=== PATIENT | female | born 2000 ===

== ENCOUNTER 2024-10-03 17:04 | Outpatient (REF) | payer BC, SELFPAY ==
[2024-10-03 21:12] LABS: HCT 39.8 % (36.0-46.0); HGB 13.3 g/dL (11.2-15.7); MCH 30.5 pg (27.0-33.0); MCHC 33.4 % (32.0-36.0); MCV 91 fL (80-95); MPV 10.5 fL (8.0-11.0); Platelet Count 267 10^3/uL (130-400); RBC 4.36 10^6/uL (3.93-5.22); RDW 13.1 % (11.7-14.6); RDW-SD 43.9 fL; WBC 8.61 10^3/uL (4.4-10.8)
[2024-10-05 08:45] LABS: HIV-1/2 Ag & Ab Screen Negative (Negative)
[2024-10-05 10:34] LABS: Syphilis Serology (RPR) Negative (Negative)
[2024-10-05 11:08] LABS: Chlamydia Result Negative (Negative); GC Result Negative (Negative)
== END 2024-10-03 17:05 | disposition home or self-care (01) ==
LOC: NCHCN 17:04
PROVIDERS: Visit Provider Internal Medicine
DX: N94.6 Dysmenorrhea, unspecified (principal); Z11.4 Encounter for screening for human immunodeficiency virus [HIV]; Z11.3 Encounter for screening for infections with a predominantly sexual mode of transmission
CPT/HCPCS: 85027; 87389; 87491; 87591; 86592

== ENCOUNTER 2024-11-07 17:56 | Outpatient (REF) | payer BC, SELFPAY ==
--- NOTE | 2024-11-07 16:10 | PAPFT_PTH ---
PATIENT: Lizzy Parson LOC: [facility] U#:[id number] AGE/SX: 24/F ROOM: RE11/07/[address]: Juliette White : 2000 BED: DIS: 11/07/2024 SPEC #: [id number] RECD: 11/08/24 12:53 STATUS: SIDNEY REQ #: [id number] GATO: 11/07/24 16:[address]: Juliette White DEPT: [facility] Cytology RECD BY: Sharda Reid ENTERED: 11/08/24 12:53 SP TYPE: PAPFT OT DR: Unknown,Unknown Tissues: 1 - CX/ENDOCX FOR PAP SMEARS Procedures: PAP THIN PREP/[facility] Screening Comments: [id number]
== END 2024-11-07 17:57 | disposition home or self-care (01) ==
LOC: NCHCN 17:56
PROVIDERS: Visit Provider Internal Medicine
DX: R30.0 Dysuria (principal); Z12.4 Encounter for screening for malignant neoplasm of cervix; B95.7 Other staphylococcus as the cause of diseases classified elsewhere
CPT/HCPCS: 87077; 88142; 87086; 87186